=== PATIENT | male | born 1945 | race Caucasian/White ===

== ENCOUNTER → 2016-10-18 | Outpatient (CLI) | payer MEDICARE ==
[~2016-10-18] MED LIST: AMOX-291 PO; ASCO10004 PO; ASPI-515 PO; BUPR150T20 PO; CELE100C PO; CELE200C PO; CLOP75TA PO; CYAN1TAB29 PO; CYAN50008 PO; DIAZ2TAB3 PO; DOCU-30 PO; FURO-93 PO; GLUCOSAMINE PO; MELO-190 PO; METHADONE PO; METO25TA2 PO; METO25TA35 PO/NG; METOPROLOL PO; MORP15TA39 PO; MULT-115 PO; NAPR500T3 PO; OXYC-229 PO; OXYC10TA6 PO; PANT40TA5 PO; POTA10TA5 PO; SERT100T PO; SERT100T5 PO; SIMV20TA3 PO; TICA90TA PO; VITAMINS PO
[2016-10-18 12:09] LABS: BLOOD UREA NITROGEN 27 mg/dL (7-18)
== END | disposition home or self-care (01) ==
LOC: LAB 11:23
PROVIDERS: ATTEND Internal Medicine
DX: Z01.818 Encounter for other preprocedural examination (principal)
CPT/HCPCS: 36415; 82565; 84520

== ENCOUNTER → 2016-10-19 | Outpatient (CLI) | payer MEDICARE ==
[~2016-10-19] MED LIST changes: +OMNIPAQUE 350 MG/ML, 100ML BOTTLE ONE
== END ==
LOC: RAD 05:26
PROVIDERS: ATTEND Internal Medicine
DX: K86.2 Cyst of pancreas (principal); K86.89 Other specified diseases of pancreas; K76.89 Other specified diseases of liver; J84.10 Pulmonary fibrosis, unspecified
CPT/HCPCS: 74170; Q9967

== ENCOUNTER → 2017-10-30 | Outpatient (CLI) | payer MEDICARE ==
[~2017-10-30] MED LIST changes: +DOCU-131 PO; -DOCU-30 PO; -MELO-190 PO; +MELO7.5T31 PO; +MORP-52 PO; -MORP15TA39 PO; +NAPR-685 PO; -NAPR500T3 PO; -OMNIPAQUE 350 MG/ML, 100ML BOTTLE ONE; -OXYC-229 PO; +OXYC-307 PO
== END | disposition home or self-care (01) ==
LOC: RAD 10:24
PROVIDERS: ATTEND Family Medicine
DX: M41.86 Other forms of scoliosis, lumbar region (principal); Z98.1 Arthrodesis status
CPT/HCPCS: 72082

== ENCOUNTER → 2018-01-01 | Outpatient (CLI) | payer MEDICARE | END | disposition home or self-care (01) | LOC: RAD 08:27 | PROVIDERS: ATTEND Family Medicine | DX: M41.86 Other forms of scoliosis, lumbar region (principal); Z98.1 Arthrodesis status | CPT/HCPCS: 72082 ==

== ENCOUNTER → 2018-03-21 | Outpatient (CLI) | payer MEDICARE ==
[~2018-03-21] MED LIST changes: +REGADENOSON 0.4 MG/5 ML SYRINGE ONE
== END | disposition home or self-care (01) ==
LOC: CFH 06:39
PROVIDERS: ATTEND Internal Medicine Cardiovascular Disease
DX: I34.0 Nonrheumatic mitral (valve) insufficiency (principal); I10 Essential (primary) hypertension; E78.5 Hyperlipidemia, unspecified; Z87.891 Personal history of nicotine dependence
CPT/HCPCS: 78452; 93017; 93306; A9502; J2785

== ENCOUNTER → 2018-04-26 | Outpatient (CLI) | payer MEDICARE ==
[~2018-04-26] MED LIST changes: -REGADENOSON 0.4 MG/5 ML SYRINGE ONE
== END | disposition home or self-care (01) ==
LOC: RAD 12:15
PROVIDERS: ATTEND Pain Medicine Interventional Pain Medicine
DX: M79.89 Other specified soft tissue disorders (principal)

== ENCOUNTER 2018-05-08 09:44 | Day surgery (SDC) | payer MEDICARE ==
[~2018-05-08] VITALS: Ht 162.6 cm; Wt 78.2 kg
[2018-05-08 10:48] VITALS: BP 122/61
[2018-05-08] MEDS ORDERED: SODIUM CHLORIDE 0.9% 1,000 ML IV ONE (11:00)
[2018-05-08] MEDS ORDERED: LIDOCAINE 2% VISCOUS, 100ML MM PRN (11:00)
[2018-05-08] MEDS ORDERED: BENZOCAINE AEROSOL SPRAY 20%, 60ML TP PRN (11:00)
[2018-05-08] MEDS ORDERED: POLY17PO5 PO (11:14)
[2018-05-08] MEDS ORDERED: NAPR500T8 PO (11:14)
[2018-05-08] MEDS ORDERED: OXYC20TA42 PO (11:14)
[2018-05-08] MEDS ORDERED: ATOR40TA PO (11:14)
[2018-05-08] MEDS ORDERED: OXYC-432 PO (11:14)
[2018-05-08] MEDS ORDERED: IMIP10TA2 PO (11:23)
[2018-05-08] MEDS ORDERED: PROPOFOL 10 MG/ML, 20ML ONE (12:52)
== END 2018-05-08 15:10 | disposition home or self-care (01) ==
LOC: CACL 09:44 → EDSTATUS 12:00 → CACL 15:10
PROVIDERS: ATTEND Internal Medicine Cardiovascular Disease
DX: I34.0 Nonrheumatic mitral (valve) insufficiency (principal); Z87.891 Personal history of nicotine dependence; Z79.82 Long term (current) use of aspirin; Z79.899 Other long term (current) drug therapy
CPT/HCPCS: 93312; 93321; 93325; J2704; 93320

== ENCOUNTER → 2018-05-23 | Outpatient (CLI) | payer MEDICARE ==
[~2018-05-23] MED LIST changes: +ATOR40TA PO; +IMIP10TA2 PO; +NAPR500T8 PO; +OXYC-432 PO; +OXYC20TA42 PO; +POLY17PO5 PO
== END | disposition home or self-care (01) ==
LOC: RAD 08:24
PROVIDERS: ATTEND Family Medicine
DX: M48.56XA Collapsed vertebra, not elsewhere classified, lumbar region, initial encounter for fracture (principal); M41.85 Other forms of scoliosis, thoracolumbar region; M43.8X5 Other specified deforming dorsopathies, thoracolumbar region; M43.22 Fusion of spine, cervical region; Z98.1 Arthrodesis status
CPT/HCPCS: 72082

== ENCOUNTER → 2018-10-25 | Outpatient (CLI) | payer MEDICARE ==
[~2018-10-25] MED LIST changes: +SERT100T32 PO; -SERT100T5 PO
== END | disposition home or self-care (01) ==
LOC: CFH 13:58
PROVIDERS: ATTEND Internal Medicine Cardiovascular Disease
DX: I34.0 Nonrheumatic mitral (valve) insufficiency (principal); I25.2 Old myocardial infarction; I10 Essential (primary) hypertension; E78.5 Hyperlipidemia, unspecified; Z87.891 Personal history of nicotine dependence; Z95.818 Presence of other cardiac implants and grafts; Z95.1 Presence of aortocoronary bypass graft
CPT/HCPCS: 93306

== ENCOUNTER 2019-07-31 13:00 | Outpatient (CLI) | payer MEDICARE ==
[~2019-07-31 13:00] MED LIST changes: -ASPI-496 PO; -ATOR10TA PO; -BUPR150T13 PO; -DIPH25CA61 PO; -METO25TA35 PO; -OXYC-296 PO; -TIZA4CAP PO; -VIT1CAPS11 PO
[2019-07-31] MEDS ORDERED: IMIP10TA2 PO (13:58)
[2019-07-31] MEDS ORDERED: BUPR150T13 PO (13:58)
[2019-07-31] MEDS ORDERED: METO25TA35 PO (13:58)
[2019-07-31] MEDS ORDERED: OXYC20TA42 PO (13:58)
[2019-07-31] MEDS ORDERED: NAPR-685 PO (13:58)
[2019-07-31] MEDS ORDERED: VIT1CAPS11 PO (13:58)
[2019-07-31] MEDS ORDERED: DIPH25CA61 PO (13:58)
[2019-07-31] MEDS ORDERED: ASPI-496 PO (13:58)
[2019-07-31] MEDS ORDERED: TIZA4CAP PO (13:58)
[2019-07-31] MEDS ORDERED: OXYC-296 PO (13:58)
[2019-07-31] MEDS ORDERED: ATOR10TA PO (13:58)
== END 2019-07-31 23:59 | disposition home or self-care (01) ==
LOC: STAR 13:00
PROVIDERS: ATTEND Surgery
DX: Z01.818 Encounter for other preprocedural examination (principal); K40.90 Unilateral inguinal hernia, without obstruction or gangrene, not specified as recurrent
CPT/HCPCS: 93005

== ENCOUNTER → 2019-07-31 | Outpatient (CLI) | payer MEDICARE ==
[~2019-07-31] MED LIST changes: +ASPI-496 PO; +ATOR10TA PO; +BUPR150T13 PO; +DIPH25CA61 PO; +METO25TA35 PO; +OXYC-296 PO; +TIZA4CAP PO; +VIT1CAPS11 PO
== END | disposition home or self-care (01) ==
LOC: CFH 14:29
PROVIDERS: ATTEND Family Medicine
DX: M51.34 Other intervertebral disc degeneration, thoracic region (principal); M48.04 Spinal stenosis, thoracic region; Z98.1 Arthrodesis status
CPT/HCPCS: 72128

== ENCOUNTER 2019-09-08 13:32 | Observation (INO) | payer MEDICARE ==
[~2019-09-08] VITALS: Ht 162.6 cm; Wt 73.6 kg
[~2019-09-08 13:32] MED LIST changes: +ASPI-496 PO; +ATOR10TA PO; +BUPIVACAINE/PF 0.5% ONE; +BUPR150T13 PO; -BUPR150T20 PO; +BUPR150T28 PO; +DIPH25CA61 PO; +METO25TA35 PO; +OXYC-296 PO; +SIMV20TA19 PO; -SIMV20TA3 PO; +TIZA4CAP PO; +VIT1CAPS11 PO
[2019-09-08] MEDS ORDERED: LACTATED RINGERS 1,000 ML IV SCH (14:13)
[2019-09-08 14:19] VITALS: BP 133/74
[2019-09-08] MEDS ORDERED: FENTANYL PF 250 MCG/5ML ONE ×2 (14:28→19:40)
[2019-09-08] MEDS ORDERED: ACETAMINOPHEN 500 MG TABLET PO ONE (14:30)
[2019-09-08] MEDS ORDERED: GABAPENTIN 300 MG CAPSULE PO ONE (14:30)
[2019-09-08] MEDS ORDERED: PLEASE ENTER HEIGHT AND WEIGHT MC SCH (14:30)
[2019-09-08] MEDS ORDERED: LIDOCAINE-MPF 1%, 2ML INFIL ONE (14:30)
[2019-09-08] MEDS ORDERED: GLYCOPYRROLATE 0.2MG/1ML, 5ML ONE (14:31)
[2019-09-08] MEDS ORDERED: ROCURONIUM 10MG/ML,5ML ONE (14:31)
[2019-09-08] MEDS ORDERED: NEOSTIGMINE 1 MG/ML, 10ML ONE (14:31)
[2019-09-08] MEDS ORDERED: CEFAZOLIN 1,000 MG ONE (14:31)
[2019-09-08] MEDS ORDERED: PROPOFOL 10 MG/ML, 20ML ONE (14:31)
[2019-09-08] MEDS ORDERED: HALOPERIDOL 5 MG/ML IV PRN (16:30)
[2019-09-08] MEDS ORDERED: FENTANYL PF 100 MCG/2ML IV PRN ×2 (16:30→17:30)
[2019-09-08] MEDS ORDERED: HYDROmorphone 2 MG/ML, 1ML IVPush PRN ×2 (16:30→17:30)
[2019-09-08] MEDS ORDERED: LABETALOL 5MG/ML, 20ML IV PRN ×2 (16:30→17:30)
[2019-09-08] MEDS ORDERED: OXYcodone 5 MG/5 ML ORAL.SOL UDC PO PRN ×2 (16:30→17:30)
[2019-09-08] MEDS ORDERED: hydrALAzine 20 MG/ML, 1ML IV PRN ×2 (16:30→17:30)
[2019-09-08] MEDS ORDERED: PROMETHAZINE 25 MG/ML, 1ML IV PRN (16:30)
[2019-09-08] MEDS ORDERED: MEPERIDINE/PF 25MG/ML,1ML IVPush PRN ×2 (16:30→17:30)
[2019-09-08] MEDS ORDERED: ONDANSETRON 2MG/ML, 2ML IV PRN ×2 (17:30→23:30)
[2019-09-08] MEDS ORDERED: MORPHINE SULFATE 4 MG/ML, 1ML IVPush PRN (17:30)
[2019-09-08] MEDS ORDERED: PHENYLEPHRINE 10 MG/ML ONE (17:54)
[2019-09-08] MEDS ORDERED: OXYcodone 5 MG/5 ML ORAL.SOL UDC ONE (21:06)
[2019-09-08] MEDS ORDERED: FENTANYL PF 100 MCG/2ML ONE (21:06)
[2019-09-08] MEDS ORDERED: MORPHINE SULFATE 4 MG/ML, 1ML IV PRN (23:30)
[2019-09-08] MEDS ORDERED: OXYcodone/APAP 5/325MG TABLET PO PRN (23:30)
[2019-09-08 23:59] VITALS: BP 121/61
[2019-09-09 03:54] VITALS: BP 107/52
[2019-09-09] MEDS ORDERED: METOPROLOL TARTRATE 25 MG TAB PO SCH (06:00)
[2019-09-09 07:34] VITALS: BP 103/60
[2019-09-09] MEDS ORDERED: SODIUM CHLORIDE FLUSH 3ML SYRINGE IVF SCH (09:00)
[2019-09-09] MEDS ORDERED: OXYC-302 PO (10:12)
== END 2019-09-09 12:33 | disposition home or self-care (01) ==
LOC: OR 13:32 → 4NE 22:10 → OR 23:21 → 4NE 23:22 → DCLOUNGE 09-09 12:21
PROVIDERS: ADMIT Surgery; ATTEND Surgery
DX: K40.20 Bilateral inguinal hernia, without obstruction or gangrene, not specified as recurrent (principal); K66.0 Peritoneal adhesions (postprocedural) (postinfection); I25.10 Atherosclerotic heart disease of native coronary artery without angina pectoris; E78.5 Hyperlipidemia, unspecified; Z79.82 Long term (current) use of aspirin; Z79.899 Other long term (current) drug therapy; Z87.891 Personal history of nicotine dependence; Z95.1 Presence of aortocoronary bypass graft
CPT/HCPCS: 49651; C1781; G0378; J0690; J2370; J2704; J2710; J3010; S0020

== ENCOUNTER 2020-01-01 10:36 | Outpatient (CLI) | payer MEDICARE ==
[~2020-01-01 10:36] MED LIST changes: -BUPIVACAINE/PF 0.5% ONE; +OXYC-302 PO
[2020-01-01] MEDS ORDERED: REGADENOSON 0.4 MG/5 ML SYRINGE ONE (12:49)
== END 2020-01-01 23:59 | disposition home or self-care (01) ==
LOC: RAD 10:36
PROVIDERS: ATTEND Internal Medicine Cardiovascular Disease
DX: Z01.810 Encounter for preprocedural cardiovascular examination (principal); I21.29 ST elevation (STEMI) myocardial infarction involving other sites
CPT/HCPCS: 78452; 93017; A9502; J2785

== ENCOUNTER → 2020-08-31 | Outpatient (CLI) | payer MEDICARE ==
[~2020-08-31] MED LIST changes: +ASCO100018 PO; -ASCO10004 PO; -ASPI-515 PO; +ASPI-963 PO; -OXYC-302 PO; -OXYC-307 PO; +OXYC-380 PO; -OXYC-432 PO; +OXYC1TAB14 PO; +OXYC1TAB18 PO; -PANT40TA5 PO; +PANT40TA6 PO
== END | disposition home or self-care (01) ==
LOC: CVU 13:26
PROVIDERS: ATTEND Internal Medicine Cardiovascular Disease
DX: I08.0 Rheumatic disorders of both mitral and aortic valves (principal); I25.10 Atherosclerotic heart disease of native coronary artery without angina pectoris
CPT/HCPCS: 93306; 93356

== ENCOUNTER 2020-10-21 09:32 | Day surgery (SDC) | payer MEDICARE ==
[~2020-10-21] VITALS: Ht 162.6 cm; Wt 74.5 kg
[2020-10-21] MEDS ORDERED: SODIUM CHLORIDE 0.9% 1,000 ML IV ONE (10:00)
[2020-10-21 10:11] VITALS: BP 117/63
[2020-10-21] MEDS ORDERED: FLUT9.9S NAS (10:28)
[2020-10-21] MEDS ORDERED: OMEP-110 PO (10:28)
[2020-10-21] MEDS ORDERED: Tylenol Arthritis PO (10:28)
[2020-10-21] MEDS ORDERED: TURM500C7 PO (10:28)
[2020-10-21] MEDS ORDERED: OXYC9CAP PO (10:28)
[2020-10-21] MEDS ORDERED: CHOL10003 PO (10:28)
[2020-10-21] MEDS ORDERED: PLEASE ENTER HEIGHT AND WEIGHT MC SCH (10:30)
[2020-10-21] MEDS ORDERED: PROPOFOL 10 MG/ML, 20ML ONE (11:25)
== END 2020-10-21 13:09 | disposition home or self-care (01) ==
LOC: CACL 09:32
PROVIDERS: ATTEND Internal Medicine Cardiovascular Disease
DX: I34.0 Nonrheumatic mitral (valve) insufficiency (principal); I25.10 Atherosclerotic heart disease of native coronary artery without angina pectoris; E78.5 Hyperlipidemia, unspecified; G47.33 Obstructive sleep apnea (adult) (pediatric); Z20.822 Contact with and (suspected) exposure to COVID-19; Z79.82 Long term (current) use of aspirin; Z79.891 Long term (current) use of opiate analgesic; Z79.899 Other long term (current) drug therapy; Z87.891 Personal history of nicotine dependence; Z88.8 Allergy status to other drugs, medicaments and biological substances; Z95.1 Presence of aortocoronary bypass graft
CPT/HCPCS: 87635; 93312; 93321; 93325; J2704

== ENCOUNTER 2020-12-07 09:53 | Day surgery (SDC) | payer MEDICARE ==
[~2020-12-07] VITALS: Ht 162.6 cm; Wt 74.6 kg
[~2020-12-07 09:53] MED LIST changes: +CHOL10003 PO; -CYAN50008 PO; +CYAN50009 PO; +FLUT9.9S NAS; +OMEP-110 PO; +OXYC9CAP PO; +TURM500C7 PO; +Tylenol Arthritis PO
[2020-12-07 10:39] VITALS: BP 137/68
[2020-12-07] MEDS ORDERED: LACTATED RINGERS 1,000 ML IV SCH (11:00)
[2020-12-07] MEDS ORDERED: PROPOFOL 50 ML ONE (11:27)
[2020-12-07] MEDS ORDERED: ACETAMINOPHEN 325 MG TABLET PO PRN (11:30)
[2020-12-07] MEDS ORDERED: ONDANSETRON 2MG/ML, 2ML IVPush PRN (11:30)
[2020-12-07] MEDS ORDERED: FENTANYL PF 100 MCG/2ML IV PRN (11:30)
== END 2020-12-07 13:45 | disposition home or self-care (01) ==
LOC: OUT 09:53
PROVIDERS: ATTEND Internal Medicine Geriatric Medicine
DX: K86.89 Other specified diseases of pancreas (principal); K29.50 Unspecified chronic gastritis without bleeding; K21.9 Gastro-esophageal reflux disease without esophagitis; R15.9 Full incontinence of feces; I10 Essential (primary) hypertension; E78.5 Hyperlipidemia, unspecified; I25.10 Atherosclerotic heart disease of native coronary artery without angina pectoris; I25.2 Old myocardial infarction; F32.9 Major depressive disorder, single episode, unspecified; Z79.891 Long term (current) use of opiate analgesic; Z79.899 Other long term (current) drug therapy; Z88.8 Allergy status to other drugs, medicaments and biological substances; Z95.5 Presence of coronary angioplasty implant and graft; Z83.3 Family history of diabetes mellitus
CPT/HCPCS: 43239; 43259; 88305; 93005; J2704; J7120

== ENCOUNTER → 2021-01-12 | Outpatient (CLI) | payer MEDICARE ==
[~2021-01-12] MED LIST changes: +METO25TA91 PO; +Tumeric PO; +VIT1CAPS42 PO
== END | disposition home or self-care (01) ==
LOC: CFH 08:59
PROVIDERS: ATTEND Internal Medicine Cardiovascular Disease
DX: Z01.810 Encounter for preprocedural cardiovascular examination (principal); I08.0 Rheumatic disorders of both mitral and aortic valves; I65.29 Occlusion and stenosis of unspecified carotid artery; I25.10 Atherosclerotic heart disease of native coronary artery without angina pectoris; I25.2 Old myocardial infarction; Z95.1 Presence of aortocoronary bypass graft; Z87.891 Personal history of nicotine dependence
CPT/HCPCS: 93306